=== PATIENT | male | born 1930 | race Caucasian/White ===

== ENCOUNTER → 2018-05-29 13:41 | Day surgery (SDC) | payer MEDICARE, OTHER ==
[~2018-05-29 13:41] MED LIST: Buffered Lidocaine 1% SYRIN* 1 ML/SYRINGE INTRADERM ONE; Bupivacaine 0.25% SDV PF* 10 ML VIAL INJ ONE; Dexamethasone IV* 4 MG/ML 1 ML (4 MG) IV SLOW PU ONE; Dexamethasone IV* 4 MG/ML 1 ML (4 MG) ONE; Famotidine IV* 10 MG/ML 2 ML (20 mg) IV ONE; Famotidine IV* 10 MG/ML 2 ML (20 mg) ONE; Lactated Ringers 1000 ML Bag* 1,000 ML IV SCH; Lidocain 1% EPI 1:100,000 * 30 ML MDV ONE; Midazolam* 1 MG/ML 2 ML VIAL (2 MG) ONE; Ondansetron INJ* 2 MG/ML VIAL ONE; Propofol* 10 MG/ML 20 ML BTL ONE; ceFAZolin 2 GM in NS PREMIX(*) 2 GM/100 ML BAG IVPB ONE; fentaNYL* 50 MCG/ML 2 ML VIAL (100 MCG VIAL) ONE
[2018-05-29 19:08] VITALS: BP 153/94
== END | disposition home or self-care (01) ==
LOC: OR 13:41
PROVIDERS: ATTEND Plastic Surgery
DX: C44.622 Squamous cell carcinoma of skin of right upper limb, including shoulder (principal); Z87.891 Personal history of nicotine dependence; I10 Essential (primary) hypertension; I69.819 Unspecified symptoms and signs involving cognitive functions following other cerebrovascular disease; M19.90 Unspecified osteoarthritis, unspecified site
CPT/HCPCS: 88305; 88331; 88332; J0690; J1100; J2250; J2405; J2704; J3010; J3490

== ENCOUNTER 2018-07-02 17:36 | Inpatient (IN) | payer MEDICARE ==
--- NOTE | 2018-07-02 17:49 | ED ---
Complex/Multi-Sys Presentation - HPI Summary HPI Summary: Pt is an 87 y/o male brought in by EMS who presents to the ED c/o generalized weakness. As per EMS, he had a fall 3-4 days ago. He was seen by his PCP Dr. Shepherd and all tests were normal. Pt has no memory of the fall and is unsure if he has a head injury. Since the fall his condition has been worsening and he is not able to ambulate. Pt is able to ambulate by himself normally. Pt now c/o generalized weakness, confusion, BLE edema, and back pain. He denies any CP, SOB , or dysuria. Pt takes daily ASA. - History Of Current Complaint Hx Obtained From: Patient, EMS Onset/Duration: Gradual Onset, Worse Since Timing: Constant Location: Pain At: - back Aggravating Factor(s): Fall Alleviating Factor(s): Nothing Associated Signs And Symptoms: Positive: Confusion, Weakness, Back Pain Related History: Other - recent fall - Allergies/Home Medications Allergies/Adverse Reactions: Allergies Allergy/AdvReac Type Severity Reaction Status Date / Time No Known Allergies Allergy Verified 05/29/18 14:45 PMH/Surg Hx/FS Hx/Imm Hx Cardiovascular History: Reports: Hx Hypertension - ON MEDICATION FOR Denies: Hx Congestive Heart Failure, Hx Pacemaker/ICD Respiratory History: Reports: Hx Sleep Apnea - BUT NOT DIAGNOSED BY A PHYSICIAN - PATIENT STATES HE OCCASIONALLY HAS Denies: Other Respiratory Problems/Disorders GI History: Reports: Hx Gastroesophageal Reflux Disease - OCCASIONALLY, Hx Jaundice - ONLY WHEN HAD THE HEPATITIS, Other GI Disorders - X 1 BOUT OF COLITIS WHILE IN HIGH SCHOOL Musculoskeletal History: Reports: Hx Arthritis - HANDS, FEET, Hx Gout Sensory History: Reports: Hx Contacts or Glasses - GLASSES Denies: Hx Hearing Aid Opthamlomology History: Reports: Hx Contacts or Glasses - GLASSES Neurological History: Denies: Other Neuro Impairments/Disorders Psychiatric History: Reports: Hx Anxiety - HX OF-REPORTS NO MEDICATION FOR AT THIS TIME, Hx Depression - HX OF-REPORTS NO MEDICATION FOR AT THIS TIME Denies: Hx Panic Disorder - Surgical History Surgery Procedure, Year, and Place: COLONOSCOPY WITH ANESTHESIA Hx Anesthesia Reactions: No Infectious Disease History: No Infectious Disease History: Reports: 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" Denies: History Other Infectious Disease, Traveled Outside the [place] in Last 30 Days - Family History Known Family History: Negative: Cardiac Disease - [place], Other - stroke - Social History Alcohol Use: Rare Hx Substance Use: No Substance Use Type: Reports: None Hx Tobacco Use: Yes Smoking Status (MU): Former Smoker Amount Used/How Often: 1 PPD X 45 YEARS Review of Systems Negative: Chest Pain Negative: Shortness Of Breath Negative: dysuria Positive: Myalgia - back, Edema - BLE Neurological: Other - confusion Positive: Weakness - generalized All Other Systems Reviewed And Are Negative: Yes Physical Exam - Summary Physical Exam Summary: GENERAL: Patient is a well-developed and nourished M who is lying comfortable in the stretcher. Patient is not in any acute respiratory distress. HEAD AND FACE: Normocephalic EYES: PERRLA, EOMI x 2. EARS: Hearing grossly intact. MOUTH: Oropharynx within normal limits. NECK: Supple, trachea is midline, no adenopathy, no JVD, no carotid bruit. CHEST: Symmetric, no tenderness at palpation LUNGS: Clear to auscultation bilaterally. No wheezing or crackles. CVS: Regular rate and rhythm, S1 and S2 present, no murmurs or gallops appreciated. ABDOMEN: Soft, non-tender. Bowel sounds are normal. No abnormal abdominal pulsations. EXTREMITIES: Full ROM in all major joints, no cyanosis or clubbing. 3+ pitting edema of BLE, left worse than right. NEURO: Alert and oriented x 3. No acute neurological deficits. Speech is normal and follows commands. SKIN: Dry and warm. Erythema and warmth to dorsal aspect of left foot. Puncture wound on left great toe. Triage Information Reviewed: Yes Vital Signs On Initial Exam: Initial Vitals Temp Pulse Resp BP Pulse Ox 100.8 F 90 16 127/88 95 07/02/18 17:44 07/02/18 17:44 07/02/18 17:44 07/02/18 17:44 07/02/18 17:44 Vital Signs Reviewed: Yes Diagnostics - Vital Signs Vital Signs Temp Pulse Resp BP Pulse Ox 07/02/18 17:44 100.8 F 90 16 127/88 95 - Laboratory Result Diagrams: 07/02/18 19:50 07/03/18 06:26 Lab Statement: Any lab studies that have been ordered have been reviewed, and results considered in the medical decision making process. Complex Multi-Symp Course/Dx Course Of Treatment: Pt is an 87 y/o male brought in by EMS who presents to the ED c/o generalized weakness, confusion, BLE edema, and back pain s/p fall. A physical exam revealed 3+ pitting edema of BLE, left worse than right, Erythema and warmth to dorsal aspect of left foot, Puncture wound on left great toe. In the course pt was given Tylenol, Vancomycin, Zosyn, and fluids. Final dx of sepsis. Pt will be signed out to Dr. Javier at shift change, pending EKG, CXR, US , bloodwork, and UA. He is agreeable with this plan. - Diagnoses Provider Diagnoses: Cellulitis of left foot - Critical Care Time Critical Care Time: 30-74 min Discharge - Sign-Out/Discharge Documenting (check all that apply): Sign-Out Patient Signing out patient TO: Wilfrid Javier Patient Received Moderate/Deep Sedation with Procedure: No - Discharge Plan Condition: Stable Disposition: ADMITTED TO [facility] - Billing Disposition and Condition Condition: STABLE Disposition: Admitted to [facility] - Attestation Statements Document Initiated by Scribe: Yes Documenting Scribe: Ping Bustamante Provider For Whom Scribe is Documenting (Include Credential): Michel Hurd MD Scribe Attestation: Ping Villanueva scribed for Michel Hurd MD on 07/03/18 at 0740. Scribe Documentation Reviewed: Yes Provider Attestation: The documentation as recorded by the scribePing accurately reflects the service I personally performed and the decisions made by me, Michel Hurd MD Status of Scribe Document: Viewed
[2018-07-02] MEDS ORDERED: NS 0.9% 1000 ML** 1,000 ML IV.FLUID IV ONE (17:57)
[2018-07-02] MEDS ORDERED: Acetaminophen TAB* 325 MG PO ONE (17:59)
[2018-07-02] MEDS ORDERED: Piperacillin/Tazobac ADVAN(*) 3.375 GM in NS 0.9% 100 ML* 100 ML IVPB ONE (18:00)
[2018-07-02] MEDS ORDERED: Vancomycin(*) 1,000 MG in NS 0.9% 250 ML* 250 ML IVPB ONE (18:00)
[2018-07-02] MEDS ORDERED: Vancomycin(*) 1,000 MG BAG/ADDV IVPB ONE (18:12)
--- NOTE | 2018-07-02 19:15 | ED ---
Progress - Progress Note Progress Note: The patient is a 87 year old male who is presenting to the [facility] via ambulance and signed out from Dr. Hurd. The patient is received by Dr. Javier. He is pending EKG, CXR, US, bloodwork, and UA. - Results/Orders Results/Orders: US reveals, as per radiologist, no acute findings. No evidence of deep vein thrombosis. The ED Physician has reviewed this radiology report. - EKG/XRAY/CT EKG: NSR - 73 bpm Sinus rhythm. Comments: EKG at 195 reveals Non-specific ST-wave changes. Xray Comments: Chest X-ray as per ED Physician report reveals no acute processes. Course/Dx - Course Course Of Treatment: Pt is an 87 y/o male brought in by EMS. Pt was signed out to Dr. Javier at shift change, pending EKG, CXR, US, bloodwork, and UA. Upon evaluating EKG, CXR, US, bloodwork and UA revealing a high WBC. The patient will be admitted to Dr. Valadez and the dx will be Left foot cellulits. - Diagnoses Provider Diagnoses: Cellulitis of left foot - Provider Notifications Discussed Care Of Patient With: Charis Valadez Time Discussed With Above Provider: 21:15 Instructed by Provider To: Admit As Observation Discharge - Sign-Out/Discharge Documenting (check all that apply): Patient Departure - ADMITTED, Receiving Sign -Out Receiving patient FROM: Michel Hurd - Discharge Plan Condition: Stable Disposition: ADMITTED TO [facility] Referrals: Ángel Almazan MD [Primary Care Provider] - - Attestation Statements Document Initiated by Scribe: Yes Documenting Scribe: Helio Thapa Provider For Whom Scribe is Documenting (Include Credential): Dr. Wilfrid Javier Scribe Attestation: Helio Villanueva, scribed for Dr. Wilfrid Javier on 07/02/18 at 2203. Status of Scribe Document: Ready
[2018-07-02 19:58] LABS: ABS Lymphocytes 0.6 10^3/ul (1.0-4.8); ABS Monocytes 1.5 10^3/ul (0-0.8); ABS Neutrophils 9.1 10^3/ul (1.5-7.7); Eosinophil % 0.1 %; Hematocrit 35 % (42-52); Hemoglobin 11.5 g/dL (14.0-18.0); Lymphocyte % 5.7 %; Mean Corpuscular HGB Conc 33 g/dL (31-36); Mean Corpuscular Hemoglobin 32 pg (27-31); Mean Corpuscular Volume 95 fL (80-94); Mean Platelet Volume 8.4 fL (7.4-10.4); Platelet Count 209 10^3/uL (150-450); Red Blood Count 3.65 10^6 /uL (4.18-5.48); Red Cell Distribution Width 13 % (10.5-15); White Blood Count 11.2 10^3/uL (3.5-10.8)
[2018-07-02 20:08] LABS: Activated Partial Thrombo Time 30.1 seconds (26.0-36.3); INR 1.41 (0.82-1.09)
[2018-07-02 20:15] LABS: ALT 29 U/L (7-52); AST 27 U/L (13-39); Albumin 3.2 g/dL (3.2-5.2); Alkaline Phosphatase 57 U/L (34-104); Anion Gap 7 mmol/L (2-11); BUN/Creatinine Ratio 25.6 (8-20); Blood Urea Nitrogen 31 mg/dL (6-24); C Reactive Protein 223.49 mg/L (<8.01); CO2 Carbon Dioxide 25 mmol/L (22-32); Calcium 8.2 mg/dL (8.6-10.3); Chloride 105 mmol/L (101-111); Globulin 3.2 g/dL (2-4); Glucose 116 mg/dL (70-100); Potassium 3.6 mmol/L (3.5-5.0); Sodium 137 mmol/L (135-145); Total Protein 6.4 g/dL (6.4-8.9)
[2018-07-02 20:21] LABS: Troponin I 0.11 ng/mL (<0.04)
[2018-07-02 21:06] LABS: Urine Appearance Cloudy; Urine Bacteria Absent (Absent); Urine Bilirubin Negative (Negative); Urine Blood 1+ (Negative); Urine Color Yellow; Urine Glucose Negative (Negative); Urine Ketones Negative (Negative); Urine Nitrite Negative (Negative); Urine Protein 1+(30 mg/dL) (Negative); Urine Red Blood Cell Trace(0-2/hpf) (Absent); Urine Specific Gravity 1.021 (1.010-1.030); Urine Squamous Epithelial Cell Present (Absent); Urine Urobilinogen Negative (Negative); Urine White Blood Cell Trace(0-5/hpf) (Absent)
[2018-07-02] MEDS ORDERED: Ondansetron INJ* 2 MG/ML VIAL IV PRN (21:44)
[2018-07-02] MEDS ORDERED: Lactated Ringers 1000 ML Bag* 1,000 ML IV SCH (22:00)
[2018-07-02] MEDS ORDERED: Vancomycin(*) 0 MG in NS 0.9% 250 ML* 250 ML IVPB SCH (22:00)
[2018-07-02 22:21] LABS: Creatine Kinase 101 U/L (10-223)
[2018-07-02] MEDS ORDERED: Cefepime 1 GM in Dextrose(*) 1 GM/50 ML BAG IV SCH (22:30)
[2018-07-02 22:31] LABS: Cholesterol 116 mg/dL; HDL Cholesterol 23.9 mg/dL; LDL Cholesterol 75 mg/dL; Triglycerides 88 mg/dL
[2018-07-02 22:52] LABS: Troponin I 0.11 ng/mL (<0.04)
[2018-07-02] MEDS ORDERED: Vancomycin per Pharmacy* NOTE FOLLOW UP PRN (22:59)
[2018-07-02] MEDS: Heparin VIAL(*) 5000 UNITS/ML VIAL (FIVE THOUSAND) SUBCUT SCH (23:19)
[2018-07-02] MEDS ORDERED: metroNIDAZOLE IV 500 MG/100ML* 500 MG/100 ML BAG IVPB SCH (23:30)
[2018-07-03 01:16] LABS: Troponin I 0.09 ng/mL (<0.04)
--- NOTE | 2018-07-03 04:53 | HP ---
CC: Dr. Ángel Almazan * DATE OF ADMISSION: 07/02/18 PRIMARY CARE PROVIDER: Dr. Ángel Almazan. MY ATTENDING WHILE IN THE HOSPITAL: Charis Valadez MD * (DICTATED BY JUAN GALICIA) CHIEF COMPLAINT: Weakness x2 days. HISTORY OF PRESENT ILLNESS: Mr. Abdalla is an 87-year-old male with past medical significant for hypertension, hyperlipidemia, TIA in 2015 with no residual deficits, mild cognitive impairment, who presents to the emergency department after, 2 days before he began to feel like he lacked strength symmetrically in his upper and lower extremities and just felt generally off, no appetite. The patient had some subjective fevers. No chills. The patient had some nausea without vomiting. The patient did not pass out. The patient denied chest pain. The patient denied palpitations. The patient states that he fell several days ago, mechanical fall and hit his bilateral toes and they now hurt. The patient denies any other pain. The patient states the pain in his feet is about 4/5 and symmetrical. The patient did not notice that his feet were swollen before today. The patient denies chronic lower extremity swelling. The patient denies recent immobilization except for last 2 days when he was not able to get around very much. The patient lives by himself and is surprised himself on being very strong. The patient does not have history of diabetes. The patient has no history of severe infection requiring hospitalization. The patient had surgery to remove a skin cancer from the dorsum of his right hand approximately 1 month ago. The patient has not taken antibiotics or taken any analgesics or applied any home treatments to his lower extremities. The patient states that he has been able to keep his lower extremities up pretty well to decrease the swelling. The patient has had no recent hospitalizations. In the emergency department, the patient was found to be borderline tachycardic, has an elevated temperature, elevated white blood cell count, severely elevated CRP and elevated troponin at 0.11. Consistent with sepsis, the patient had a negative urinalysis, negative chest x-ray. The patient's EKG showed no ischemia. The patient has negative lower extremity Doppler for DVT due to concern for left lower extremity cellulitis. We are asked to evaluate the patient for admission to the hospital. PAST MEDICAL HISTORY: 1. Hypertension. 2. Hyperlipidemia. 3. TIA, no residual deficits. 4. Mild cognitive impairment. 5. Recent skin cancer, status post removal. 6. History of hepatitis in 1956, requiring 1 month of hospitalization while patient was in the service. 7. Chronic kidney disease stage 3. PAST SURGICAL HISTORY: Skin cancer removed from dorsum of right hand. MEDICATIONS: 1. Losartan/hydrochlorothiazide 50/12.5 one tab p.o. daily. 2. Aspirin 81 mg p.o. daily. 3. The patient takes 8 supplements, which he does not know the names of. ALLERGIES: No known drug allergies. FAMILY HISTORY: The patient's parents both of old age. The patient has a sister who has dementia whom he does not talk to frequently. SOCIAL HISTORY: The patient smoked from when he was 19 to when he was about 57 approximately 1 pack a day. The patient drinks occasional alcohol. Does not use illicit drugs. The patient is retired from a [employer] company. He was in the service. The patient has never . Never had any kids. The patient's surrogate decision maker will be his friend from [facility], Dillon Ferguson. REVIEW OF SYSTEMS: A 14-point review of systems was reviewed and is negative except as stated above in the HPI. PHYSICAL EXAMINATION GENERAL: The patient is an 87-year-old male, who appears stated age, sitting comfortably in bed, in no acute distress. VITAL SIGNS: At the time of evaluation, temperature 100.8, pulse rate 73, respiratory rate 22, oxygen saturation 92% on room air, blood pressure 125/52. HEENT: Head: Normocephalic, atraumatic. Sclerae anicteric. No conjunctival injection. Nasal mucosa moist. Oral mucosa moist. No pharyngeal erythema, discharge, or exudate. NECK: Supple, nontender. No lymphadenopathy. No carotid bruits auscultated. No JVD. RESPIRATORY: Clear to auscultation bilaterally. No wheezes, rales, or rhonchi. CARDIAC: Regular rate and rhythm. No clicks, murmurs, gallops, or rubs. Pulses are 2+ in the bilateral dorsalis pedis, posterior tibialis and radial areas. ABDOMEN: Soft, nontender, nondistended. Bowel sounds present. Normoactive in all 4 quadrants. No hepatosplenomegaly. No abdominal bruits auscultated. No hepatojugular reflux. GENITOURINARY: No suprapubic or CVA tenderness. SKIN: Clear, dry, intact. EXTREMITIES: Swelling of bilateral lower extremities. Circumferential thickening. The second toe on the left foot open area with a fist amount of moisture between the second and third toes on the left lower extremity. Tenderness to palpation over the entirety of the left foot, slight erythema and swelling in the right lower extremity. No tenderness to palpation. Erythema over the left foot, slight open area with surrounding erythema on the dorsum of the right hand. No other rash or ulcers. NEUROLOGIC: Cranial nerves II through XII are intact. No focal deficits. Alert and oriented x3. PSYCHIATRIC: Pleasant and cooperative. DIAGNOSTIC STUDIES/LAB DATA: White blood cell count 11.2, hemoglobin 11.5, platelet count 209. INR 1.41, aPTT 30.1. Sodium was 137, potassium 3.6, chloride 105, carbon dioxide 25, anion gap 7, BUN 31, creatinine 1.21, glucose 116, lactic acid 1.5, calcium 8.2. Bilirubin 1.1, AST 27, ALT 29, alkaline phosphatase 57. Troponin I 0.11, CRP 220. BNP 76, protein 6.4, albumin 2.2, globulin 3.2. Urinalysis has 1+ protein, 1+ blood, otherwise unremarkable. Studies: Chest x-ray shows no active cardiopulmonary disease. Electrocardiogram shows normal sinus rhythm, rate 73, QTc of 439, normal axis. No hypertrophy or enlargement. No blocks. T-wave inversion in II and aVF. Venous Doppler study read as no evidence of acute deep vein thrombosis, no acute findings. Subcutaneous edema in the patient's lower leg. ASSESSMENT AND PLAN: Impression: Mr. Abdalla is an 87-year-old male with past medical history significant for hypertension, hyperlipidemia, transient ischemic attack, who presents to the emergency department with 2 days of weakness and was found to have a likely cellulitis of the left lower extremity. The patient was admitted to the hospital for IV antibiotics and close monitoring. 1. Left lower extremity cellulitis, sepsis, concern for deep tissue infection. The patient has significant swelling of the left lower extremity with tenderness to palpation particularly with circumferential swelling and erythema in the second toe on the left foot with an ulcer at the base of his toe. The patient has no history of diabetes, but will have a hemoglobin A1c checked given the location of his ulcer. We can start patient on vancomycin, cefepime, and Flagyl at this time. Wound culture attempted to be obtained. Her antibiotic coverage will be narrowed based on these blood culture findings and findings of MRI which has been ordered to assess for deep tissue infection. The patient would likely be able to be narrowed to coverage for cellulitis if no deep tissue infection is found. The patient had a wound to this foot. This does not appear to be the source of this infection at this time. The patient received 30 30 mL/kg bolus while in the emergency department. Continue on fluids at 100 mL/hour for blood pressure support at this time. The patient does not meet criteria for severe sepsis. 2. Hypertension. We will hold antihypertensive medications as the patient is normotensive setting of sepsis. 3. Hyperlipidemia. The patient is on no medications for this. We will recheck lipid profile. The patient had slightly elevated LDL in 2014. 4. History of transient ischemic attack. Given patient's history of transient ischemic attack, it is very likely he has other vascular disease including peripheral vascular disease. The patient has good pulses in his lower extremities. Lower extremity edema might be inhibiting wound healing. The patient likely also has coronary artery disease. Continue the patient's aspirin at this time. Consider stop therapy for secondary prevention. 5. Elevated troponin. The patient has an elevated troponin, this will be trended. The patient has no ischemic changes on his EKG. This is likely representing demand ischemia in the setting of sepsis. 6. Mild cognitive impairment. Implement supportive care, avoid medications noted to cause delirium. 7. DVT prophylaxis: The patient will have heparin subcu. 8. FEN: The patient will have a heart-healthy diet, caffeine okay. 9. Code status: The patient would like to be a full code. 10. Disposition: The patient is admitted inpatient to the hospital, estimated length of stay greater than 2 days. TIME SPENT: Approximately 60 minutes was spent on this admission of the patient , 30 of which was spent [id number] with the patient obtaining history and physical and discussing treatment plan. This plan was discussed with my attending, Dr. Charis Valadez, and she is in agreement. JUAN GALICIA [id number]/[facility] #: [id number] [place]
[2018-07-03] MEDS: Heparin VIAL(*) 5000 UNITS/ML VIAL (FIVE THOUSAND) SUBCUT SCH ×3 (05:35→21:21)
[2018-07-03 07:12] LABS: C Reactive Protein 240.71 mg/L (<8.01); Calcium 8.4 mg/dL (8.6-10.3); EGFR African American 78.6 (>60); Magnesium 2.2 mg/dL (1.9-2.7); Potassium 3.5 mmol/L (3.5-5.0)
[2018-07-03] MEDS ORDERED: Diazepam TAB(*) 5 MG PO ONE (08:38)
--- NOTE | 2018-07-03 08:59 | PN ---
Subjective Date of Service: 07/03/18 Interval History: Pt is feeling ok today. He states there is no pain in his foot at rest. When I touch his L first toe he winces in pain. He denies any SOB, CP or abdominal issues. He does c/o mild back pain which he thinks is related to his positioning. He still feels quite weak. Objective Active Medications: Acetaminophen (Tylenol Tab*) 650 mg PO Q6H PRN PRN Reason: FEVER/PAIN Aspirin (Aspirin Ec Tab*) 81 mg PO QAM [facility] Heparin Sodium (Porcine) (Heparin Vial(*)) 5,000 units SUBCUT Q8HR [facility] Last Admin: 07/03/18 05:35 Dose: 5,000 units Lactated Ringer's (Lactated Ringers 1000 Ml Bag*) 1,000 mls @ 100 mls/hr IV PER RATE [facility] Last Admin: 07/02/18 23:40 Dose: 100 mls/hr Cefepime HCl (Maxipime 1 Gm In Dextrose Duplex (*)) 1 gm in 50 mls @ 100 mls/ hr IV Q12H [facility] Last Admin: 07/02/18 23:40 Dose: 100 mls/hr Metronidazole/Sodium Chloride (Flagyl 500 Mg Ivpb*) 500 mg in 100 mls @ 100 mls /hr IVPB Q12H [facility] Last Admin: 07/03/18 00:46 Dose: 100 mls/hr Vancomycin HCl 1,250 mg/ (Sodium Chloride) 250 mls @ 166.667 mls/hr IVPB Q24H [facility] Multivitamins/Minerals (Preservision Areds(Multivitamins/Mineral)(Nf)) 1 cap PO QAM [facility] Ondansetron HCl (Zofran Inj*) 4 mg IV Q6H PRN PRN Reason: NAUSEA Pharmacy Consult (Vancomycin Per Pharmacy*) 1 note FOLLOW UP . PRN PRN Reason: PER PROTOCOL Pharmacy Profile Note (Vancomycin Trough Check) 1 note FOLLOW UP 1130 ONE Stop: 07/05/18 11:31 Pneumococcal Polyvalent Vaccine (Pneumococcal Vac 23-Polyvalent*) 0.5 ml IM .ONCE ONE Stop: 07/03/18 09:01 Vital Signs - 8 hr 07/03/18 02:28 Temperature 98.9 F Pulse Rate 85 Respiratory 18 Rate Blood Pressure 97/72 (mmHg) O2 Sat by Pulse 93 Oximetry Oxygen Devices in Use Now: None Appearance: Elderly male lying in bed, NAD Eyes: No Scleral Icterus Ears/Nose/Mouth/Throat: Mucous Membranes Moist Respiratory: Symmetrical Chest Expansion and Respiratory Effort, Clear to Auscultation - anteriorly Cardiovascular: NL Sounds; No Murmurs; No JVD, RRR, - - 1+ LE edema Abdominal: NL Sounds; No Tenderness; No Distention Extremities: No Clubbing, Cyanosis Skin: - - minimal erythema to L dorsum of the foot, L 1st and 2nd toes, very small scabbed lesion to the medial aspect of the L 1st toe Neurological: - - alert, poor historian Result Diagrams: 07/02/18 19:50 07/03/18 06:26 Assess/Plan/Problems-Billing Mr Abdalla is an 87 yo M who has a h/o HTN, HLD, CKD stage III and mild cognitive impairment who presented to the ER with c/o weakness and was admitted for L foot/1st and 2nd toe cellulitis. - Patient Problems (1) Sepsis Current Visit: Yes Status: Acute Comment: Pt by definition was septic on admission with mild tachycardia and tachypnea. Clinically however the patient did not appear to be acutely ill. He has been treated for sepsis with fluid bolus and broad spectrum Abx. (2) Cellulitis Current Visit: Yes Status: Acute Code(s): L03.90 - CELLULITIS, UNSPECIFIED SNOMED Code(s): 859468185 Comment: Pt with mild cellulitis to L dorsum of the foot and 1st/2nd toes. There is pain with movement of the 1st toe which makes me concerned for possible gout as the cause of the mild leukocytosis and minimal erythema (I did not see his foot yesterday to see if there has been improvement in the erythema) . Will narrow coverage to cefazolin, I do not see a significant ulceration and he his not diabetic. Monitor for continued improvement. Check uric acid level. Consider starting colchicine. (3) Weakness Current Visit: Yes Status: Acute Code(s): R53.1 - WEAKNESS SNOMED Code(s) : 84875298 Comment: On admission thought to be secondary to infection. He also has LE edema and mildly positive troponin. I am concerned about these. Will obtain transthoracic echo to eval LVEF, valve function. PT eval pending. (4) Elevated troponin Current Visit: Yes Status: Acute Code(s): R74.8 - ABNORMAL LEVELS OF OTHER SERUM ENZYMES SNOMED Code(s): 784134682 Comment: Possibly secondary to demand ischemia. EKG unchanged for prior in 2014. Will get echo to eval for systolic dysfunction-possibly CHF leading to elevated troponin. (5) HTN (hypertension) Current Visit: Yes Status: Acute Code(s): I10 - ESSENTIAL (PRIMARY) HYPERTENSION SNOMED Code(s): 35783402 Comment: BP generally under ok control. Losartan/HCTZ on hold currently. (6) HLD (hyperlipidemia) Current Visit: Yes Status: Acute Code(s): E78.5 - HYPERLIPIDEMIA, UNSPECIFIED SNOMED Code(s): 93137052 Comment: Not on treatment. (7) DVT prophylaxis Current Visit: Yes Status: Acute Code(s): Z29.9 - ENCOUNTER FOR PROPHYLACTIC MEASURES, UNSPECIFIED SNOMED Code(s): 696773218 Comment: SQ heparin (8) Full code status Current Visit: Yes Status: Acute Code(s): Z78.9 - OTHER SPECIFIED HEALTH STATUS SNOMED Code(s): 682061121 Comment: Full code
[2018-07-03] MEDS ORDERED: MINERA AREDS PO SCH (09:00)
[2018-07-03] MEDS ORDERED: Pneumococcal *Vac Polyvalent 0.5 ML VIAL IM ONE (09:00)
[2018-07-03] MEDS ORDERED: MULTIVITAMINS PO SCH (09:00)
[2018-07-03] MEDS ORDERED: Colchicine* 0.6 MG TAB PO ONE (09:02)
[2018-07-03] MEDS: Aspirin EC TAB* 81 MG TAB.EC PO SCH (10:03)
[2018-07-03] MEDS: ceFAZolin 1 GM ADVAN(*) 1 GM in NS 0.9% 50 ML* 50 ML IVPB SCH ×3 (11:31→21:16)
[2018-07-03] MEDS ORDERED: Vancomycin(*) 1,250 MG in NS 0.9% 250 ML* 250 ML IVPB SCH (12:00)
--- NOTE | 2018-07-03 16:41 | ECHO ---
*[facility]* [place] [address] Fax #: [phone] Transthoracic Echocardiogram Patient: Anselmo Mittal Height: 64 in / L 162.6 cm : 1930 Weight: 170.6 lb / Study Date: 07/03/2018 77.6 kg Age: 87 BP: 97 / 72 Gender: M BMI/BSA: 29.4 kg/m^2 HR: 81 bpm / 1.83 m^2 *Truck Striker: * Marita Gutierres [facility] *Referring Physician: * Danay AntoineReading Physician: * Charly Gill MD Indications: Edema. History: PMH: Transient ischemic attack. Functional status: Renal failure. Patent foramen ovale. Risk factors: Current tobacco use. Hypertension. Dyslipidemia. Conclusions Summary: 1. Left ventricle: There is focal basal hypertrophy. Systolic function is normal. The estimated ejection fraction is 55-65%, by visual assessment. Wall motion is normal; there are no regional wall motion abnormalities. 2. Right ventricle: Systolic function is low normal. 3. Mitral valve: There is no evidence of stenosis. There is mild regurgitation. 4. Aortic valve: There is no evidence of stenosis. There is mild regurgitation. 5. Tricuspid valve: There is mild regurgitation. 6. Pericardium, extracardiac: There is no significant pericardial effusion. 7. Impressions: Unchanged from the study of 07/13/2014. Study data: Transthoracic echocardiogram. Procedure: Transthoracic echocardiography was performed. Image quality was fair. Complete 2D, spectral Doppler, and color flow Doppler. Location: Bedside. Patient status: Inpatient. Patient room number: 416-2. Rhythm: Normal sinus rhythm. Findings Left ventricle: The cavity size is at the lower limits of normal. There is focal basal hypertrophy. Systolic function is normal. The estimated ejection fraction is 55-65%, by visual assessment. Wall motion is normal; there are no regional wall motion abnormalities. Features are consistent with a pseudonormal left ventricular filling pattern, with concomitant abnormal relaxation and increased filling pressure (grade 2 diastolic dysfunction). Right ventricle: The cavity size is mildly dilated. The moderator band is in a normal position. Systolic function is low normal. Left atrium: The atrium is mildly to moderately dilated. Right atrium: The atrium is normal in size. Mitral valve: The annulus is calcified. The leaflets are mildly thickened. There is no evidence of stenosis. There is mild regurgitation. The peak diastolic gradient is 3.4 mm Hg. Aortic valve: The valve is trileaflet. The leaflets are mildly thickened. There is no evidence of stenosis. There is mild regurgitation. The mean systolic gradient is 2.0 mm Hg. The peak systolic gradient is 4.0 mm Hg. Tricuspid valve: The leaflets are normal thickness. There is no evidence of stenosis. There is mild regurgitation. Pulmonic valve: Not well visualized. The leaflets are normal thickness. There is no evidence of stenosis. There is trivial regurgitation. The peak systolic gradient is 2.0 mm Hg. Aorta: Ascending aorta: The ascending aorta is appears normal. Aortic arch: The aortic arch is appears normal. The aortic root is not dilated. Pericardium: A prominent pericardial fat pad is present. There is no significant pericardial effusion. Pulmonary arteries: The main pulmonary artery is normal-sized. Systemic veins: Inferior vena cava: The vessel is normal in size. The respirophasic diameter changes are in the normal range (>= 50%). Measurements Left ventricle Value Ref Right atrium continued Value Ref JOHN, LAX (L) 3.7 cm 4.2 - 5.8 ML dim, ES, A4C 3.8 cm 2.6 - 4.4 ESD, LAX 2.6 cm 2.5 - 4.0 Estimated RAP 3 mm Hg --------- FS, LAX 29 % 25 - 43 PW, ED, LAX 1.0 cm 0.6 - 1.0 Aortic valve Value Ref JOHN (L) 3.7 cm 4.2 - 5.8 Alessandra diam, ED 1.9 cm --------- ESD 2.6 cm 2.5 - 4.0 Peak v, S 1.05 m/sec --------- FS 29 % 25 - 43 Mean v, S 0.68 m/sec --------- PW, ED 1.0 cm 0.6 - 1.0 VTI, S 18.5 cm --------- EF 57 % 52 - 72 Mean grad, S 2.0 mm Hg --------- Mass 110 g 96 - 200 Peak grad, S 4.0 mm Hg --------- Mass/bsa 60 g/m^2 50 - 102 AR peak v 3.71 m/sec --------- Mass/ht 67.84 g/m --------- AR PHT 486 ms --------- Mass/ht^2.7 29.70 g/m^2.7 --------- AR peak grad 55 mm Hg --------- E', lat alessandra, TDI (L) 5.7 cm/sec >=10.0 E/e', lat alessandra, 16 --------- Mitral valve Value Ref TDI Peak E 0.92 m/sec --------- E', med alessandra, TDI (L) 5.9 cm/sec >=7.0 Peak A 0.69 m/sec --- ------ E/e', med alessandra, 16 --------- Decel time 201 ms ------ --- TDI Peak grad, D 3.4 mm Hg --------- E', avg, TDI 5.8 cm/sec --------- Peak E/A ratio 1.3 ------ --- E/e', avg, TDI (H) 16 <=14 Tricuspid valve Value Ref LVOT Value Ref TR peak v 2.5 m/sec <=2.8 Peak stefany, S 0.85 m/sec --------- Peak RV-RA grad, S 25 mm Hg --------- Mean stefany, S 0.57 m/sec --------- Mean grad, S 2 mm Hg --------- Aortic root Value Ref Root diam 3.3 cm <4.0 Ventricular septum Value Ref IVS, ED, LAX 1.0 cm 0.6 - 1.0 Ascending aorta Value Ref IVS, ED 1.0 cm 0.6 - 1.0 AAo AP diam, S 3.3 cm --------- Right ventricle Value Ref Aortic arch Value Ref JOHN, LAX 3.5 cm --------- Arch diam 2.4 cm --------- JOHN minor ax, A4C (H) 4.4 cm 1.9 - 3.5 mid Decending aorta Value Ref Pressure, S 25 mm Hg --------- Too peak stefany 0.73 m/sec --------- Left atrium Value Ref Pulmonary artery Value Ref AP dim, ES 3.30 cm 3.00 - Pressure, S 23.0 mm Hg --------- 4.00 ML dim, A4C 4.5 cm --------- Inferior vena cava Value Ref Vol/bsa, ES, 1-p 32 ml/m^2 12 - 37 Diam 1.8 cm --------- A4C Vol/bsa, ES, A/L (H) 41 ml/m^2 16 - 34 Right atrium Value Ref SI dim, ES 4.5 cm 3.4 - 5.3 Legend: (L) and (H) adri values outside specified reference range. Prepared and electronically signed by Charly Gill MD 07/03/2018 16:40
--- NOTE | 2018-07-03 17:32 | CONSULT ---
Subjective Date of Service: 07/03/18 Interval History: Mr. Mittal is an 87 yo male with PMH significant for HTN, HLD, TIA, CKD3, and mild cognitive impairment, who presented to the emergency room for weakness. He was admitted for left LE cellulitis and concern for deep tissue infection. Upon admission he was noted to have an wound at the base of his toe. He denies any history of diabetes. Patient seen and examined at bedside. Family History: Unchanged from Admission Social History: Unchanged from Admission Past Medical History: Unchanged from Admission Review of Systems - Measurements Intake and Output: Intake and Output Last 24 Hours 07/01/18 07/02/18 07/03/18 07/04/18 06:59 06:59 06:59 06:59 Intake Total 0 563 Balance 0 563 Weight 171 lb 3.2 oz 171 lb 3.2 oz Intake: IV Fluids 25 NS 25 IVPB 58 cefazolin 58 Oral 0 480 Other: Estimated Void Medium Medium Date of Last Bowel Unknown Movement # Bowel Movements 0 0 # Voids 1 1 - Review of Systems Constitutional Symptoms: Positive: Fever Negative: Other - Chills Dermatology: Positive: Other - Redness to left foot Endocrinology: Negative: Diabetes Mellitus Objective Active Medications: Acetaminophen (Tylenol Tab*) 650 mg PO Q6H PRN Reason: FEVER/PAIN Aspirin (Aspirin Ec Tab*) 81 mg PO QAM [facility] Heparin Sodium (Porcine) (Heparin Vial(*)) 5,000 units SUBCUT Q8HR [facility] Cefazolin Sodium 1 gm/ Sodium (Chloride) 50 mls @ 200 mls/hr IVPB Q6H [facility] Multivitamins/Minerals (Preservision Areds(Multivitamins/Mineral)(Nf)) 1 cap PO QAM [facility] Ondansetron HCl (Zofran Inj*) 4 mg IV Q6H PRN Reason: NAUSEA Vital Signs - 8 hr 07/03/18 07/03/18 07/03/18 10:00 10:02 11:46 Temperature 98.4 F Pulse Rate 74 Respiratory 18 18 16 Rate Blood Pressure 125/54 (mmHg) O2 Sat by Pulse 98 98 Oximetry 07/03/18 12:08 Temperature Pulse Rate Respiratory 16 Rate Blood Pressure (mmHg) O2 Sat by Pulse Oximetry Oxygen Devices in Use Now: None Appearance: NAD, sitting up in bed Ears/Nose/Mouth/Throat: Mucous Membranes Moist Respiratory: Symmetrical Chest Expansion and Respiratory Effort Cardiovascular: - - 1+ bilateral LE edema Extremities: - - LE edema Skin: - - See skin note below Neurological: Alert and Oriented x 3 Nutrition: Taking PO's Result Diagrams: 07/04/18 15:03 07/04/18 15:03 Microbiology and Other Data: Microbiology 07/02/18 17:58 Urine Culture - Final Urine Skin Deviation Note - Skin Deviation Findings Left foot - There is a small scabbed area to the medal aspect of the base of the 1st toe, measuring 0.6 cm x 0.4 cm and a small amount of yellow crusting between the 1st and second toes. No other wounds or open areas noted on the left foot. There is erythema to the 1st toe and there is some pain with movement. The toe nails on bilateral feet are long. Assessment/Plan: 1. Left 1st toe erythema and small wound that appears to have been a blister. Recommend applying ABX ointment and a bandaid to the wound. He is noted to have bilateral LE edema and is encouraged to keep legs elevated. Consider workup/ treatment for possible gout. Encouraged the son to make an appointment with a slice plug cutter operator for care of the toe nails. 2. Diet. Regular diet 3. Code Status. Full Code 4. Disposition. Inpatient, disposition per orthopedics TIME SPENT: Time for this wound consultation was 20 minutes and 10 minutes was spent with the patient and son discussing medial history; assessing, measuring and photographing the wound. Wound Problem/Plan Is Patient a Wound Clinic Patient: No Attending: Lidia Lu
[2018-07-03] MEDS: Acetaminophen TAB* 325 MG PO PRN (21:19)
[2018-07-04] MEDS: ceFAZolin 1 GM ADVAN(*) 1 GM in NS 0.9% 50 ML* 50 ML IVPB SCH ×4 (04:01→21:03)
[2018-07-04] MEDS: Heparin VIAL(*) 5000 UNITS/ML VIAL (FIVE THOUSAND) SUBCUT SCH ×3 (06:02→21:03)
[2018-07-04] MEDS: Neomycin/Polym/Bacit TOP OINT* 15 GM TOPICAL SCH (09:53)
[2018-07-04] MEDS: Multivitamins/Minerals TAB PO SCH (09:53)
[2018-07-04] MEDS: Acetaminophen TAB* 325 MG PO PRN ×2 (09:53→15:59)
[2018-07-04] MEDS: Aspirin EC TAB* 81 MG TAB.EC PO SCH (09:53)
[2018-07-04] MEDS ORDERED: Furosemide IV* 10 MG/ML 2 ML VIAL (20 MG) IV ONE (14:49)
--- NOTE | 2018-07-04 14:55 | PN ---
Subjective Date of Service: 07/04/18 Interval History: Pt is feeling ok. Nursing notes Anselmo is difficult to move-he is taking a 2 assist. He c/o discomfort in all of his joints but does not specifically state his L foot is worse. He denies any SOB. Family History: Unchanged from Admission Social History: Unchanged from Admission Past Medical History: Unchanged from Admission Objective Active Medications: Acetaminophen (Tylenol Tab*) 650 mg PO Q6H PRN PRN Reason: FEVER/PAIN Last Admin: 07/04/18 09:53 Dose: 650 mg Aspirin (Aspirin Ec Tab*) 81 mg PO QAM [facility] Last Admin: 07/04/18 09:53 Dose: 81 mg Colchicine (Colcrys*) 0.6 mg PO DAILY [facility] Furosemide (Lasix Iv*) 20 mg IV ONCE ONE Stop: 07/04/18 14:50 Heparin Sodium (Porcine) (Heparin Vial(*)) 5,000 units SUBCUT Q8HR [facility] Last Admin: 07/04/18 06:02 Dose: 5,000 units Cefazolin Sodium 1 gm/ Sodium (Chloride) 50 mls @ 200 mls/hr IVPB Q6H [facility] Last Admin: 07/04/18 09:53 Dose: 200 mls/hr Multivitamins/Minerals (Theragran/Minerals Tab*) 1 tab PO QAM [facility] Last Admin: 07/04/18 09:53 Dose: 1 tab Neomycin/Polymyxin/Bacitracin (Neosporin Top Oint Tube*) 1 applic TOPICAL DAILY [facility] Last Admin: 07/04/18 09:53 Dose: 1 applic Ondansetron HCl (Zofran Inj*) 4 mg IV Q6H PRN PRN Reason: NAUSEA Vital Signs - 8 hr 07/04/18 07/04/18 10:00 11:17 Temperature 97.8 F Pulse Rate 70 Respiratory 20 26 Rate Blood Pressure 148/59 (mmHg) O2 Sat by Pulse 97 97 Oximetry Oxygen Devices in Use Now: None Appearance: Elderly male sitting up in a chair, NAD Eyes: No Scleral Icterus Ears/Nose/Mouth/Throat: Mucous Membranes Moist Respiratory: Symmetrical Chest Expansion and Respiratory Effort, Clear to Auscultation - few RLL crackles Cardiovascular: NL Sounds; No Murmurs; No JVD, RRR, - - 2+ LE edema bilaterally Abdominal: NL Sounds; No Tenderness; No Distention Extremities: No Clubbing, Cyanosis Skin: No Nodules or Sclerosis, - - minimal erythematous 1st/2nd toes on the left , mild erythema with petechial change on the outer aspect of the L foot Neurological: - - alert and oriented to situation, poor historian Result Diagrams: 07/02/18 19:50 07/03/18 06:26 Microbiology and Other Data: Microbiology 07/02/18 17:58 Urine Culture - Final Urine Assess/Plan/Problems-Billing Mr Abdalla is an 87 yo M who has a h/o HTN, HLD, CKD stage III and mild cognitive impairment who presented to the ER with c/o weakness and was admitted for L foot/1st and 2nd toe cellulitis. - Patient Problems (1) Sepsis Current Visit: Yes Status: Acute Comment: Pt by definition was septic on admission with mild tachycardia and tachypnea. Clinically however the patient did not appear to be acutely ill. He has been treated for sepsis with fluid bolus and broad spectrum Abx. (2) Cellulitis Current Visit: Yes Status: Acute Code(s): L03.90 - CELLULITIS, UNSPECIFIED SNOMED Code(s): 382172956 Comment: Pt with ? mild cellulitis to L dorsum of the foot and 1st/2nd toes. There is no longer any pain with movement of the 1st toe, perhaps he responded to colchicine yesterday. Will follow up CRP today. MRI was ordered wrong and done of the left knee. Continue cefazolin for now. Will xray L foot to eval for fracture. (3) Weakness Current Visit: Yes Status: Acute Code(s): R53.1 - WEAKNESS SNOMED Code(s) : 80666121 Comment: Unclear why the patient is so weak. ? secondary to diastolic CHF- will give lasix 20mg IV x 1 now and reassess tomorrow. PT eval indicates pt needs STR. I do not think the patient was severely infected on admission. ? if pt was not moving well at home due to gout and then became deconditioned. (4) Elevated troponin Current Visit: Yes Status: Acute Code(s): R74.8 - ABNORMAL LEVELS OF OTHER SERUM ENZYMES SNOMED Code(s): 163375278 Comment: Possibly secondary to demand ischemia. EKG unchanged for prior in 2014. No wall motion abnormalities. No further testing at this time. (5) HTN (hypertension) Current Visit: Yes Status: Acute Code(s): I10 - ESSENTIAL (PRIMARY) HYPERTENSION SNOMED Code(s): 51289548 Comment: BP generally under ok control. Resume Losartan/HCTZ. (6) HLD (hyperlipidemia) Current Visit: Yes Status: Acute Code(s): E78.5 - HYPERLIPIDEMIA, UNSPECIFIED SNOMED Code(s): 33127863 Comment: Not on treatment. (7) DVT prophylaxis Current Visit: Yes Status: Acute Code(s): Z29.9 - ENCOUNTER FOR PROPHYLACTIC MEASURES, UNSPECIFIED SNOMED Code(s): 116744818 Comment: SQ heparin (8) Full code status Current Visit: Yes Status: Acute Code(s): Z78.9 - OTHER SPECIFIED HEALTH STATUS SNOMED Code(s): 350477355 Comment: Full code
[2018-07-04 15:21] LABS: Hematocrit 37 % (42-52); Hemoglobin 12.6 g/dL (14.0-18.0); Mean Corpuscular HGB Conc 34 g/dL (31-36); Mean Corpuscular Hemoglobin 32 pg (27-31); Mean Corpuscular Volume 94 fL (80-94); Mean Platelet Volume 8.3 fL (7.4-10.4); Platelet Count 262 10^3/uL (150-450); Red Blood Count 3.97 10^6 /uL (4.18-5.48); Red Cell Distribution Width 13 % (10.5-15); White Blood Count 8.4 10^3/uL (3.5-10.8)
[2018-07-04 15:31] LABS: BUN/Creatinine Ratio 21.8 (8-20); C Reactive Protein 252.78 mg/L (<8.01); Calcium 8.9 mg/dL (8.6-10.3); EGFR Non-African American 63.6 (>60); Potassium 3.3 mmol/L (3.5-5.0)
[2018-07-04 17:58] LABS: Erythrocyte Sed Rate 120 mm/Hr (0-19)
[2018-07-05] MEDS: ceFAZolin 1 GM ADVAN(*) 1 GM in NS 0.9% 50 ML* 50 ML IVPB SCH ×4 (04:04→21:08)
[2018-07-05] MEDS: Heparin VIAL(*) 5000 UNITS/ML VIAL (FIVE THOUSAND) SUBCUT SCH ×3 (06:20→21:07)
[2018-07-05] MEDS: Hydrochlorothiazide TAB* 25 MG PO SCH (09:31)
[2018-07-05] MEDS: Aspirin EC TAB* 81 MG TAB.EC PO SCH (09:32)
[2018-07-05] MEDS: Multivitamins/Minerals TAB PO SCH (09:32)
[2018-07-05] MEDS: Losartan TAB* 25 MG PO SCH (09:32)
[2018-07-05] MEDS: Colchicine* 0.6 MG TAB PO SCH (09:33)
[2018-07-05] MEDS: Neomycin/Polym/Bacit TOP OINT* 15 GM TOPICAL SCH (09:33)
[2018-07-05] MEDS ORDERED: Vancomycin Trough Check NOTE FOLLOW UP ONE (11:30)
--- NOTE | 2018-07-05 15:18 | PN ---
Subjective Date of Service: 07/05/18 Interval History: Mr. Abdalla is feeling better today. He continues to have left foot pain, but it has improved significantly. He thinks the edema is worse than it previously was. Still feeling very weak and is agreeable to rehab. Denies CP, SOB, N/V. Appetite is somewhat poor and he is a picky eater so he has not been eating much here in the hospital. Family thinks his confusion has resolved and he is back to his baseline mental status. No concerns from nursing. Family History: Unchanged from Admission Social History: Unchanged from Admission Past Medical History: Unchanged from Admission Objective Active Medications: Acetaminophen (Tylenol Tab*) 650 mg PO Q6H PRN FEVER/PAIN Aspirin (Aspirin Ec Tab*) 81 mg PO QAM [facility] Colchicine (Colcrys*) 0.6 mg PO DAILY [facility] Heparin Sodium (Porcine) (Heparin Vial(*)) 5,000 units SUBCUT Q8HR [facility] Hydrochlorothiazide (Hydrodiuril Tab*) 12.5 mg PO QAM [facility] Cefazolin Sodium 1 gm/ Sodium (Chloride) 50 mls @ 200 mls/hr IVPB Q6H [facility] Losartan Potassium (Cozaar Tab*) 50 mg PO QAM [facility] Multivitamins/Minerals (Theragran/Minerals Tab*) 1 tab PO QAM [facility] Neomycin/Polymyxin/Bacitracin (Neosporin Top Oint Tube*) 1 applic TOPICAL DAILY [facility] Ondansetron HCl (Zofran Inj*) 4 mg IV Q6H PRN NAUSEA Vital Signs - 8 hr 07/05/18 07/05/18 07/05/18 07:39 08:51 11:30 Temperature 97.9 F 97.4 F Pulse Rate 77 73 Respiratory 16 20 20 Rate Blood Pressure 139/53 140/51 (mmHg) O2 Sat by Pulse 91 96 Oximetry Oxygen Devices in Use Now: None Appearance: Elderly male sitting in bed in NAD Eyes: No Scleral Icterus Ears/Nose/Mouth/Throat: Mucous Membranes Moist Neck: NL Appearance and Movements; NL JVP, Trachea Midline Respiratory: Symmetrical Chest Expansion and Respiratory Effort, Clear to Auscultation Cardiovascular: NL Sounds; No Murmurs; No JVD, RRR Abdominal: NL Sounds; No Tenderness; No Distention Extremities: - - +2 pitting left foot Skin: - - Small abrasion with surrounding erythema to medial left foot Neurological: Alert and Oriented x 3 Lines/Tubes/Other Access: Clean, Dry and Intact Peripheral IV Nutrition: Taking PO's Result Diagrams: 07/04/18 15:03 07/04/18 15:03 Assess/Plan/Problems-Billing Assessment: Mr. Abdalla is an 87 yo M with PMH of HTN, HLD, CKD stage III and mild cognitive impairment; who presented to the ER with c/o weakness and was admitted for L foot/1st and 2nd toe cellulitis. - Patient Problems (1) Cellulitis Code(s): L03.90 - CELLULITIS, UNSPECIFIED Comment: - Mild cellulitis to L dorsum of the foot and 1st/2nd toes; minimal pain at rest and on palpation - CRP still trending up - Left foot xray shows OA without evidence of osteomyelitis or fracture; MRI was ordered wrong and done of the left knee though at this point there is a very low suspicion for osteomyelitis - Possibility that there is a component of gout, though this is less likely - Continue cefazolin, colchicine (2) Weakness Code(s): R53.1 - WEAKNESS Comment: - Unclear etiology; possibly secondary to diastolic CHF and received furosemide x1 yesterday - PT eval indicates pt needs STR (3) Sepsis Comment: - Resolved - Met criteria on admission with tachycardia and tachypnea - Treated for sepsis with fluid bolus and broad spectrum abx (4) Elevated troponin Code(s): R74.8 - ABNORMAL LEVELS OF OTHER SERUM ENZYMES Comment: - Possibly secondary to demand ischemia - EKG unchanged for prior in 2014; no wall motion abnormalities - No further testing at this time (5) HTN (hypertension) Code(s): I10 - ESSENTIAL (PRIMARY) HYPERTENSION Comment: - Slightly hypertensive, SBP 130-150s - Continue HCTZ, losartan (6) CKD (chronic kidney disease), stage III Code(s): N18.3 - CHRONIC KIDNEY DISEASE, STAGE 3 (MODERATE) Comment: - Creatinine at baseline (7) HLD (hyperlipidemia) Code(s): E78.5 - HYPERLIPIDEMIA, UNSPECIFIED Comment: - Lipid panel shows good control - Not on outpatient treatment (8) DVT prophylaxis Code(s): Z29.9 - ENCOUNTER FOR PROPHYLACTIC MEASURES, UNSPECIFIED Comment: - Heparin SQ (9) Full code status Code(s): Z78.9 - OTHER SPECIFIED HEALTH STATUS Comment: Status and Disposition: Inpatient. Anticipate d/c to [facility] when medically stable, likely tomorrow. Attending: Danay Antoine
[2018-07-06] MEDS: ceFAZolin 1 GM ADVAN(*) 1 GM in NS 0.9% 50 ML* 50 ML IVPB SCH ×4 (05:36→22:23)
[2018-07-06] MEDS: Heparin VIAL(*) 5000 UNITS/ML VIAL (FIVE THOUSAND) SUBCUT SCH ×3 (05:39→22:23)
[2018-07-06] MEDS: Neomycin/Polym/Bacit TOP OINT* 15 GM TOPICAL SCH (09:59)
[2018-07-06] MEDS: Hydrochlorothiazide TAB* 25 MG PO SCH (10:00)
[2018-07-06] MEDS: Losartan TAB* 25 MG PO SCH (10:00)
[2018-07-06] MEDS: Colchicine* 0.6 MG TAB PO SCH (10:00)
[2018-07-06] MEDS: Aspirin EC TAB* 81 MG TAB.EC PO SCH (10:01)
[2018-07-06] MEDS: Multivitamins/Minerals TAB PO SCH (10:01)
--- NOTE | 2018-07-06 12:51 | PN ---
Subjective Date of Service: 07/06/18 Interval History: Mr. Abdalla is feeling better this morning. He is not feeling quite so weak. He is up in the chair eating breakfast on my exam. He denies any pain in his left foot. Offers no complaints. Denies CP, SOB, N/V. Good appetite. No concerns from nursing. Family History: Unchanged from Admission Social History: Unchanged from Admission Past Medical History: Unchanged from Admission Objective Active Medications: Acetaminophen (Tylenol Tab*) 650 mg PO Q6H PRN FEVER/PAIN Aspirin (Aspirin Ec Tab*) 81 mg PO QAM [facility] Colchicine (Colcrys*) 0.6 mg PO DAILY [facility] Heparin Sodium (Porcine) (Heparin Vial(*)) 5,000 units SUBCUT Q8HR [facility] Hydrochlorothiazide (Hydrodiuril Tab*) 12.5 mg PO QAM [facility] Cefazolin Sodium 1 gm/ Sodium (Chloride) 50 mls @ 200 mls/hr IVPB Q6H [facility] Losartan Potassium (Cozaar Tab*) 50 mg PO QAM [facility] Multivitamins/Minerals (Theragran/Minerals Tab*) 1 tab PO QAM [facility] Neomycin/Polymyxin/Bacitracin (Neosporin Top Oint Tube*) 1 applic TOPICAL DAILY [facility] Ondansetron HCl (Zofran Inj*) 4 mg IV Q6H PRN NAUSEA Vital Signs - 8 hr 07/06/18 07/06/18 07:59 12:20 Temperature 98.3 F 98.6 F Pulse Rate 85 75 Respiratory 20 22 Rate Blood Pressure 144/65 145/61 (mmHg) O2 Sat by Pulse 96 95 Oximetry Oxygen Devices in Use Now: None Appearance: Elderly male sitting in chair in NAD Eyes: No Scleral Icterus Ears/Nose/Mouth/Throat: Mucous Membranes Moist Neck: NL Appearance and Movements; NL JVP, Trachea Midline Respiratory: Symmetrical Chest Expansion and Respiratory Effort, Clear to Auscultation Cardiovascular: NL Sounds; No Murmurs; No JVD, RRR Abdominal: NL Sounds; No Tenderness; No Distention Extremities: - - +1 left foot Skin: - - Small abrasion to left medial foot with small amount of surrounding redness Neurological: Alert and Oriented x 3 Lines/Tubes/Other Access: Clean, Dry and Intact Peripheral IV Nutrition: Taking PO's Result Diagrams: 07/04/18 15:03 07/04/18 15:03 Assess/Plan/Problems-Billing Assessment: Mr. Abdalla is an 87 yo M with PMH of HTN, HLD, CKD stage III and mild cognitive impairment; who presented to the ER with c/o weakness and was admitted for L foot/1st and 2nd toe cellulitis. - Patient Problems (1) Cellulitis Code(s): L03.90 - CELLULITIS, UNSPECIFIED Comment: - Mild cellulitis to L dorsum of the foot and 1st/2nd toes; minimal pain at rest and on palpation - CRP still trending up - Left foot xray shows OA without evidence of osteomyelitis or fracture; MRI was ordered wrong and done of the left knee though at this point there is a very low suspicion for osteomyelitis - Possibility that there is a component of gout, though this is less likely - Continue cefazolin, colchicine (2) Weakness Code(s): R53.1 - WEAKNESS Comment: - Unclear etiology; possibly secondary to diastolic CHF and received furosemide x1 yesterday - PT eval indicates pt needs STR (3) Sepsis Comment: - Resolved - Met criteria on admission with tachycardia and tachypnea - Treated for sepsis with fluid bolus and broad spectrum abx (4) Elevated troponin Code(s): R74.8 - ABNORMAL LEVELS OF OTHER SERUM ENZYMES Comment: - Possibly secondary to demand ischemia - EKG unchanged for prior in 2014; no wall motion abnormalities - No further testing at this time (5) HTN (hypertension) Code(s): I10 - ESSENTIAL (PRIMARY) HYPERTENSION Comment: - Slightly hypertensive, SBP 120-140s - Continue HCTZ, losartan (6) CKD (chronic kidney disease), stage III Code(s): N18.3 - CHRONIC KIDNEY DISEASE, STAGE 3 (MODERATE) Comment: - Creatinine at baseline (7) HLD (hyperlipidemia) Code(s): E78.5 - HYPERLIPIDEMIA, UNSPECIFIED Comment: - Lipid panel shows good control - Not on outpatient treatment (8) DVT prophylaxis Code(s): Z29.9 - ENCOUNTER FOR PROPHYLACTIC MEASURES, UNSPECIFIED Comment: - Heparin SQ (9) Full code status Code(s): Z78.9 - OTHER SPECIFIED HEALTH STATUS Comment: Status and Disposition: Inpatient. Anticipate d/c to [facility] when medically stable, probably Monday. Attending: Luis Miguel Roberson
[2018-07-07] MEDS: Melatonin 3 MG TAB PO SCH ×2 (02:34→22:14)
[2018-07-07] MEDS: Acetaminophen TAB* 325 MG PO PRN (02:34)
[2018-07-07] MEDS: ceFAZolin 1 GM ADVAN(*) 1 GM in NS 0.9% 50 ML* 50 ML IVPB SCH ×4 (04:12→22:14)
[2018-07-07] MEDS: Heparin VIAL(*) 5000 UNITS/ML VIAL (FIVE THOUSAND) SUBCUT SCH ×3 (06:12→22:14)
[2018-07-07] MEDS: Hydrochlorothiazide TAB* 25 MG PO SCH (09:09)
[2018-07-07] MEDS: Losartan TAB* 25 MG PO SCH (09:09)
[2018-07-07] MEDS: Colchicine* 0.6 MG TAB PO SCH (09:09)
[2018-07-07] MEDS: Aspirin EC TAB* 81 MG TAB.EC PO SCH (09:09)
[2018-07-07] MEDS: Multivitamins/Minerals TAB PO SCH (09:09)
[2018-07-07] MEDS: Neomycin/Polym/Bacit TOP OINT* 15 GM TOPICAL SCH (09:12)
[2018-07-07] MEDS: Benzonatate CAP* 100 MG PO PRN ×2 (10:17→22:22)
[2018-07-07] MEDS: Albuterol/Ipratropium NEB.SOL* Albuterol 2.5 MG/Ipratropium 0.5 MG 3 ML INH PRN (10:30)
--- NOTE | 2018-07-07 17:16 | PN ---
Subjective Date of Service: 07/07/18 Interval History: Mr. Mittal is a pleasant 87 yo male who was laying in bed resting watching TV. He reports he feels "terrible" when asked what was bothering him he said "it is really spiritually". He feels discouraged being in the hospital. He has some mild cognitive impairment at his baseline but appears to answers most questions appropriately, he knows where he is but couldn't remember why he was in the hospital. He denies any pain. Reports poor appetite Family History: Unchanged from Admission Social History: Unchanged from Admission Past Medical History: Unchanged from Admission Objective Active Medications: Acetaminophen (Tylenol Tab*) 650 mg PO Q6H PRN PRN Reason: FEVER/PAIN Last Admin: 07/07/18 02:34 Dose: 650 mg Albuterol/Ipratropium (Duoneb (Albuterol 2.5 Mg/Ipratropium 0.5 Mg)) 1 neb INH Q4H PRN PRN Reason: SOB/WHEEZING Last Admin: 07/07/18 10:30 Dose: 1 neb Aspirin (A[facility]in Ec Tab*) [facility] Last Admin: 07/07/18 09:09 Dose: 81 mg Benzonatate (Tessalon Cap*) 100 mg PO BID PRN PRN Reason: COUGH Last Admin: 07/07/18 10:17 Dose: 100 mg Colchicine (Colcrys*) 0.6 mg PO DAILY [facility] Last Admin: 07/07/18 09:09 Dose: 0.6 mg Heparin Sodium (Porcine) (Heparin Vial(*)) 5,000 units SUBCUT Q8HR [facility] Last Admin: 07/07/18 13:51 Dose: 5,000 units Hydrochlorothiazide (Hydrodiuril Tab*) [facility] [place] Last Admin: 07/07/18 09:09 Dose: 12.5 mg Cefazolin Sodium 1 gm/ Sodium (Chloride) 50 mls @ 200 mls/hr IVPB Q6H [facility] Last Admin: 07/07/18 15:38 Dose: 200 mls/hr Losartan Potassium (Cozaar Tab*) [facility] [place] Last Admin: 07/07/18 09:09 Dose: 50 mg Melatonin (Melatonin) 3 mg PO BEDTIME [facility] Last Admin: 07/07/18 02:34 Dose: 3 mg Multivitamins/Minerals (Theragran/Minerals Tab*) 1 tab PO QAM [facility] Last Admin: 07/07/18 09:09 Dose: 1 tab Neomycin/Polymyxin/Bacitracin (Neosporin Top Oint Tube*) 1 applic TOPICAL DAILY [facility] Last Admin: 07/07/18 09:12 Dose: 1 applic Ondansetron HCl (Zofran Inj*) 4 mg IV Q6H PRN PRN Reason: NAUSEA Vital Signs - 8 hr 07/07/18 07/07/18 07/07/18 09:33 10:31 10:57 Temperature 97.6 F Pulse Rate 62 73 Respiratory 18 18 24 Rate Blood Pressure 133/48 (mmHg) O2 Sat by Pulse 95 92 100 Oximetry Oxygen Devices in Use Now: None Result Diagrams: 07/04/18 15:03 07/04/18 15:03 Microbiology and Other Data: Microbiology 07/02/18 17:58 Urine Culture - Final Urine Assess/Plan/Problems-Billing Assessment: Mr. Mittal is an 87 yo M with PMH of HTN, HLD, CKD stage III and mild cognitive impairment; who presented to the ER with c/o weakness and was admitted for L foot/1st and 2nd toe cellulitis. - Patient Problems (1) Sepsis Comment: - Resolved - Met criteria on admission with tachycardia and tachypnea - Treated for sepsis with fluid bolus and broad spectrum abx - Source cellulitis (2) Cellulitis Comment: - Mild cellulitis to L dorsum of the foot and 1st/2nd toes; minimal pain at rest and on palpation - CRP >200 - repeat in am - Left foot xray shows OA without evidence of osteomyelitis or fracture; MRI was ordered wrong and done of the left knee though at this point there is a very low suspicion for osteomyelitis - Possibility that there is a component of gout, though this is less likely - Continue cefazolin, colchicine (3) Weakness Comment: - Unclear etiology; possibly secondary to diastolic CHF and received furosemide x1 07/04 - appear euvolemic - PT eval indicates pt needs STR (4) Elevated troponin Comment: - Possibly secondary to demand ischemia - EKG unchanged for prior in 2014; no wall motion abnormalities - No further testing at this time (5) HTN (hypertension) Comment: - Slightly hypertensive, SBP 120-140s - Continue HCTZ, losartan (6) CKD (chronic kidney disease), stage III Comment: - Creatinine at baseline (7) HLD (hyperlipidemia) Comment: - Lipid panel shows good control - Not on outpatient treatment (8) DVT prophylaxis Comment: - Heparin SQ (9) Full code status Comment: Status and Disposition: Inpatient. Anticipate d/c to [facility] when medically stable, probably Monday.
[2018-07-07] MEDS: Ascorbic Acid TAB* 500 MG PO SCH (22:14)
[2018-07-08] MEDS: ceFAZolin 1 GM ADVAN(*) 1 GM in NS 0.9% 50 ML* 50 ML IVPB SCH ×4 (04:20→21:36)
[2018-07-08] MEDS: Heparin VIAL(*) 5000 UNITS/ML VIAL (FIVE THOUSAND) SUBCUT SCH ×3 (05:18→21:36)
[2018-07-08] MEDS: Albuterol/Ipratropium NEB.SOL* Albuterol 2.5 MG/Ipratropium 0.5 MG 3 ML INH PRN (05:35)
[2018-07-08 06:36] LABS: Hematocrit 39 % (42-52); Hemoglobin 13.1 g/dL (14.0-18.0); Mean Corpuscular HGB Conc 34 g/dL (31-36); Mean Corpuscular Hemoglobin 32 pg (27-31); Mean Corpuscular Volume 94 fL (80-94); Platelet Count 387 10^3/uL (150-450); Red Blood Count 4.12 10^6 /uL (4.18-5.48); Red Cell Distribution Width 13 % (10.5-15); White Blood Count 8.3 10^3/uL (3.5-10.8)
[2018-07-08 06:53] LABS: BUN/Creatinine Ratio 19.6 (8-20); C Reactive Protein 114.07 mg/L (<8.01); Calcium 9.3 mg/dL (8.6-10.3); EGFR African American 79.5 (>60); EGFR Non-African American 65.7 (>60); Potassium 4.2 mmol/L (3.5-5.0)
[2018-07-08 07:23] LABS: ABS Eosinophils 0.7 10^3/ul (0-0.6); ABS Lymphocytes 1.1 10^3/ul (1.0-4.8); ABS Monocytes 0.8 10^3/ul (0-0.8); ABS Neutrophils 5.8 10^3/ul (1.5-7.7); Eosinophil % 7.9 %; Lymphocyte % 12.7 %; Nucleated Red Blood Cells % 0.1
[2018-07-08 07:49] LABS: Erythrocyte Sed Rate 85 mm/Hr (0-19)
[2018-07-08] MEDS: Hydrochlorothiazide TAB* 25 MG PO SCH (09:20)
[2018-07-08] MEDS: Neomycin/Polym/Bacit TOP OINT* 15 GM TOPICAL SCH (09:20)
[2018-07-08] MEDS: Colchicine* 0.6 MG TAB PO SCH (09:20)
[2018-07-08] MEDS: Aspirin EC TAB* 81 MG TAB.EC PO SCH (09:20)
[2018-07-08] MEDS: Ascorbic Acid TAB* 500 MG PO SCH ×2 (09:20→19:55)
[2018-07-08] MEDS: Multivitamins/Minerals TAB PO SCH (09:20)
[2018-07-08] MEDS: Losartan TAB* 25 MG PO SCH (09:20)
--- NOTE | 2018-07-08 15:49 | PN ---
Subjective Date of Service: 07/08/18 Interval History: 87 yo male laying in bed resting. He reports he feels down being in the hospital - reports he knows he needs rehab for his gait abnormality. His toe feels better - reports it does hurt when he touches it but the sheet does not bother it which is an improvement Denies any fever or chills Family History: Unchanged from Admission Social History: Unchanged from Admission Past Medical History: Unchanged from Admission Objective Active Medications: Acetaminophen (Tylenol Tab*) 650 mg PO Q6H PRN PRN Reason: FEVER/PAIN Last Admin: 07/07/18 02:34 Dose: 650 mg Albuterol/Ipratropium (Duoneb (Albuterol 2.5 Mg/Ipratropium 0.5 Mg)) 1 neb INH Q4H PRN PRN Reason: SOB/WHEEZING Last Admin: 07/08/18 05:35 Dose: 1 neb Ascorbic Acid (Vitamin C Tab*) 500 mg PO BID [facility] Last Admin: 07/08/18 09:20 Dose: 500 mg Aspirin (Aspirin Ec Tab*) [facility] [place] Last Admin: 07/08/18 09:20 Dose: 81 mg Benzonatate (Tessalon Cap*) 100 mg PO BID PRN PRN Reason: COUGH Last Admin: 07/07/18 22:22 Dose: 100 mg Colchicine (Colcrys*) 0.6 mg PO DAILY [facility] Last Admin: 07/08/18 09:20 Dose: 0.6 mg Heparin Sodium (Porcine) (Heparin Vial(*)) 5,000 units SUBCUT Q8HR [facility] Last Admin: 07/08/18 13:35 Dose: 5,000 units Hydrochlorothiazide (Hydrodiuril Tab*) 12.[facility] [place] Last Admin: 07/08/18 09:20 Dose: 12.5 mg Cefazolin Sodium 1 gm/ Sodium (Chloride) 50 mls @ 200 mls/hr IVPB Q6H [facility] Last Admin: 07/08/18 09:20 Dose: 200 mls/hr Losartan Potassium (Cozaar Tab*) [facility] [place] Last Admin: 07/08/18 09:20 Dose: 50 mg Melatonin (Melatonin) 3 mg PO BEDTIME [facility] Last Admin: 07/07/18 22:14 Dose: 3 mg Multivitamins/Minerals (Theragran/Minerals Tab*) 1 tab PO QAM [facility] Last Admin: 07/08/18 09:20 Dose: 1 tab Neomycin/Polymyxin/Bacitracin (Neosporin Top Oint Tube*) 1 applic TOPICAL DAILY [facility] Last Admin: 07/08/18 09:20 Dose: 1 applic Ondansetron HCl (Zofran Inj*) 4 mg IV Q6H PRN PRN Reason: NAUSEA Vital Signs - 8 hr 07/08/18 07/08/18 07/08/18 08:00 10:47 11:51 Temperature 98.3 F Pulse Rate 73 Respiratory 22 28 Rate Blood Pressure 135/49 (mmHg) O2 Sat by Pulse 92 92 93 Oximetry 07/08/18 15:24 Temperature 98.1 F Pulse Rate 77 Respiratory 20 Rate Blood Pressure 131/50 (mmHg) O2 Sat by Pulse 94 Oximetry Oxygen Devices in Use Now: None Appearance: elderly male laying in bed resting in NAD, A+Ox3; pleasent - answers questions apprpriately Eyes: No Scleral Icterus, PERRLA Ears/Nose/Mouth/Throat: Mucous Membranes Moist Respiratory: Symmetrical Chest Expansion and Respiratory Effort, Clear to Auscultation Cardiovascular: NL Sounds; No Murmurs; No JVD, RRR, No Edema Abdominal: NL Sounds; No Tenderness; No Distention Extremities: - - left 1rst big toe has erythema, mild edema that travels over the top of his foot; 1+ pedal pulse Neurological: Alert and Oriented x 3, NL Sensation, NL Muscle Strength and Tone Lines/Tubes/Other Access: Clean, Dry and Intact Peripheral IV Nutrition: Taking PO's Result Diagrams: 07/08/18 06:08 07/08/18 06:08 Microbiology and Other Data: Microbiology 07/02/18 17:58 Urine Culture - Final Urine Assess/Plan/Problems-Billing Assessment: Mr. Abdalla is an 87 yo M with PMH of HTN, HLD, CKD stage III and mild cognitive impairment; who presented to the ER with c/o weakness and was admitted for L foot/1st and 2nd toe cellulitis. - Patient Problems (1) Sepsis Comment: - Resolved - Met criteria on admission with tachycardia and tachypnea - Treated for sepsis with fluid bolus and broad spectrum abx - Source cellulitis - Blood cx NTD (2) Cellulitis Comment: - Mild cellulitis to L dorsum of the foot and 1st/2nd toes; pain improving - CRP/ESR trending down - Left foot xray shows OA without evidence of osteomyelitis or fracture; MRI was ordered wrong and done of the left knee though at this point there is a very low suspicion for osteomyelitis - Possibility that there is a component of gout, though this is less likely - Continue cefazolin, colchicine (3) Weakness Comment: - Unclear etiology; possibly secondary to diastolic CHF and received furosemide x1 07/04 - pt appears euvolemic - PT eval indicates pt needs STR (4) Elevated troponin Comment: - Possibly secondary to demand ischemia - EKG unchanged for prior in 2014; no wall motion abnormalities - No further testing at this time (5) HTN (hypertension) Comment: - Slightly hypertensive, SBP 120-140s - Continue HCTZ, losartan (6) CKD (chronic kidney disease), stage III Comment: - Creatinine at baseline (7) HLD (hyperlipidemia) Comment: - Lipid panel shows good control - Not on outpatient treatment (8) DVT prophylaxis Comment: - Heparin SQ (9) Full code status Comment: Status and Disposition: Inpatient. Anticipate d/c to [facility] when medically stable, awaiting bed
[2018-07-08] MEDS: Melatonin 3 MG TAB PO SCH (19:55)
[2018-07-08] MEDS: Benzonatate CAP* 100 MG PO PRN (22:37)
[2018-07-09] MEDS: ceFAZolin 1 GM ADVAN(*) 1 GM in NS 0.9% 50 ML* 50 ML IVPB SCH ×3 (04:48→16:27)
[2018-07-09] MEDS: Heparin VIAL(*) 5000 UNITS/ML VIAL (FIVE THOUSAND) SUBCUT SCH ×2 (05:30→14:38)
[2018-07-09] MEDS: Aspirin EC TAB* 81 MG TAB.EC PO SCH (10:48)
[2018-07-09] MEDS: Multivitamins/Minerals TAB PO SCH (10:48)
[2018-07-09] MEDS: Ascorbic Acid TAB* 500 MG PO SCH (10:48)
[2018-07-09] MEDS: Neomycin/Polym/Bacit TOP OINT* 15 GM TOPICAL SCH (10:48)
[2018-07-09] MEDS: Losartan TAB* 25 MG PO SCH (10:48)
[2018-07-09] MEDS: Colchicine* 0.6 MG TAB PO SCH (10:49)
[2018-07-09] MEDS: Hydrochlorothiazide TAB* 25 MG PO SCH (10:49)
--- NOTE | 2018-07-09 16:16 | DS ---
CC: Dr. Ángel Almazan * DISCHARGE SUMMARY: DATE OF ADMISSION: 07/02/18 DATE OF DISCHARGE: 07/09/18 PRIMARY CARE PROVIDER: Dr. Ángel Almazan. ATTENDING PHYSICIAN: Louis Cheney MD * (dictated by JUAN Blackwood). PRIMARY DIAGNOSIS: Cellulitis, possibly complicated by gout. SECONDARY DIAGNOSES: 1. Hypertension. 2. Hyperlipidemia. 3. Chronic kidney disease, stage III. 4. Mild cognitive impairment. 5. Transient ischemic attack, no residual deficits. 6. Recent skin cancer, s/p removal. 7. History of hepatitis, 1956, hospitalized x1 month. STUDIES WHILE IN THE HOSPITAL: Chest x-ray, 07/02/18, impression: No evidence for active cardiopulmonary disease. Venous Doppler study bilateral lower extremities 07/02/18, impression: No acute findings. No evidence of deep vein thrombosis. Transthoracic echocardiogram, 07/03/18, summary: Left ventricle: There is focal basal hypertrophy. Systolic function is normal. The estimated ejection fraction is 55% to 65% by visual assessment. Wall motion is normal. There are no regional wall motion abnormalities. Right ventricle: Systolic function is low normal. Mitral valve: There is no evidence of stenosis. There is mild regurgitation. Aortic valve: There is no evidence of stenosis. There is mild regurgitation. Tricuspid valve: There is mild regurgitation. Pericardium, extra pericardium: There is no significant pericardial effusion. Impression: Unchanged from the study of 07/13/14. Foot x-ray 07/04/18, impression: Osteoarthritis, soft tissue swelling of the forefoot, no appreciable erosion or periosteal reaction. Chest x-ray, 07/06/18, impression: No evidence of acute disease. DISCHARGE MEDICATIONS: Home Medications: 1. Vitamin A/vitamin C/ vitamin E/zinc/copper one tab p.o. q.a.m. 2. Losartan/hydrochlorothiazide 50/12.5 one tab p.o. q.a.m. 3. Lipozene one tab p.o. q.a.m. 4. Aspirin 81 mg p.o. q.a.m. [place] Medications: 1. Cephalexin 500 mg p.o. 4 times a day x7 days, starting at 2100. 2. Colicine 0.6 mg p.o. daily. HISTORY OF PRESENT ILLNESS/HOSPITAL COURSE: Mr. Abdalla is an 87-year-old man with a past medical history significant for hypertension, hyperlipidemia, and TIA in 2015, who presents to the ER due to lack of strength in upper and lower extremities, feeling "off," no appetite x2 days. He reports subjective fevers without chills. He states that he fell several days ago and hit both his toes and complains of pain since then. He notes to have had swollen feet since the day of arrival and notes that he has not had this in the past. In the ER, he received a full workup. He was noted to have borderline tachycardia, fever, leukocytosis, elevated CPR, elevated troponins. EKG showed no ischemia. Doppler of the lower extremities was negative. Chest x-ray was negative. Urinalysis negative. He was admitted for left lower extremity cellulitis and sepsis. He was started on vancomycin, cefepime, Flagyl with the plan for narrowing in the near future. While in the hospital, the patient's sepsis resolved with fluid bolus and broad - spectrum antibiotics. The patient continued to have mild cellulitis to the left dorsum of the foot that involved the first and second great toes. He had pain with the movement of the first great toe, which was concerning for possible gout. He was started on colchicine. Uric acid levels were within normal limits, but colchicine appeared to help, along with antibiotic treatment , so this was continued. Coverage was narrowed to cefazolin. At the time of discharge, the patient had a slight erythema to the first metacarpophalangeal joint. He was able to move the toe which was still somewhat painful. The patient also was admitted due to complaints of weakness. This was thought to be secondary to infection initially. He also had bilateral lower extremity edema, mildly positive troponin. TTE was ordered. TTE showed no wall motion abnormalities. EKG was unchanged from EKG in 2015. It is likely that elevated troponin was due to demand ischemia. The patient remained weak throughout his hospital stay. It is suspected that this is due to a mixture of possible diastolic heart failure, infection, difficulty moving at home due to gout, which may have led to deconditioning. PT evaluation indicates that the patient needs subacute rehab. A wound consult was ordered as the patient had a 0.6 cm x 0.4 cm small scabbed area at the medial aspect of the base of the first toe. Wound clinician suggested antibiotic ointment, Band-Aid to the wound. At the time of discharge , the patient denies chest pain, shortness of breath, fever, chills, cough, abdominal pain, nausea, vomiting, diarrhea, or constipation. He continues to feel weak and is looking forward to subacute rehabilitation in hopes that it will improve this. He does continue to complain of small amount of pain to the left great toe area. Mr. Abdalla is stable for discharge. PHYSICAL EXAMINATION: Vital Signs: Temperature 97.7 oral, heart rate 83, respiratory rate 16, oxygen saturation 99% on room air, blood pressure 142/92. General: Mr. Abdalla is a well-developed, well-nourished, overweight older male , who is lying in bed. He appears somewhat frail. He is in no acute distress. HEENT: Visual cook are grossly intact. Pupils are equally round and reactive to light. Extraocular movements are intact. Sclerae without icterus. Hearing is grossly intact. Oral mucous membranes are moist. There are no lesions. The pharynx is clear. Cardiovascular: Regular rate and rhythm with S1 , S2 present. There are no murmurs, rubs or gallops. There is no JVD. Respiratory: Symmetrical chest expansion. No use of accessory muscles. Lungs are clear to auscultation. There are no rhonchi, wheezes, or rubs. Abdomen: Obese. Bowel sounds noted in all quadrants. The abdomen is soft and nontender to palpation. There is no hepatosplenomegaly. Extremities: Skin is warm and smooth bilaterally. There is no clubbing or cyanosis. There is trace edema to the left lower extremity. Radial and pedal pulses are palpable. There is a small crusted-over wound medial to the left great toe. There is a small patch of erythema at the dorsal area of the metatarsophalangeal joint. The patient is able to flex and extend. Sensation is intact. Neuro: The patient is awake. He is alert and he is oriented x3. He is able to move all of his extremities. DISCHARGE PLAN: Mr. Abdalla will be discharged to [facility]. ACTIVITY: As tolerated. CONDITION: Stable. DIET: Heart healthy. MEDICATIONS: 1. Continue colchicine as needed for great toe pain. 2. Continue cephalexin 500 mg 4 times a day x7 days, next dose 2100. EDUCATION: 1. Follow up with provider at [facility] in 4 to 7 days. 2. Return to the ER or nearest hospital if he experienced any worsening of symptoms, shortness of breath, chest pain, high fevers, chills, night sweats, lightheadedness, dizziness, loss of consciousness, or any other worrisome signs or symptoms. This is a summarized report of a complex medical history and hospital stay. For further details, please see the entire medical record. TIME SPENT: Approximately 35 minutes was spent on this discharge; greater than half of that time spent [id number] with the patient discussing discharge plans and instructions. JUAN ALFORD [id number]/[facility] #: [id number] MTDNena
[2018-07-09 16:46] VITALS: BP 129/49
== END 2018-07-09 17:15 | DRG 872 ==
LOC: ED 17:36 → MED 21:44
PROVIDERS: ADMIT Pediatrics; ATTEND Student in an Organized Health Care Education/Training Program
DX: A41.9 Sepsis, unspecified organism (principal); L03.116 Cellulitis of left lower limb; I24.8 Other forms of acute ischemic heart disease; I50.30 Unspecified diastolic (congestive) heart failure; I13.0 Hypertensive heart and chronic kidney disease with heart failure and stage 1 through stage 4 chronic kidney disease, or unspecified chronic kidney disease; E78.5 Hyperlipidemia, unspecified; G31.84 Mild cognitive impairment of uncertain or unknown etiology; N18.3 Chronic kidney disease, stage 3 (moderate); L97.529 Non-pressure chronic ulcer of other part of left foot with unspecified severity; M10.9 Gout, unspecified; M19.072 Primary osteoarthritis, left ankle and foot; R53.1 Weakness; R74.8 Abnormal levels of other serum enzymes; Z85.828 Personal history of other malignant neoplasm of skin; Z86.19 Personal history of other infectious and parasitic diseases; Z86.73 Personal history of transient ischemic attack (TIA), and cerebral infarction without residual deficits; Z79.82 Long term (current) use of aspirin; Z79.899 Other long term (current) drug therapy; Z87.891 Personal history of nicotine dependence
CPT/HCPCS: 36415; 71045; 71046; 80048; 80053; 80061; 81003; 81015; 82306; 82550; 82607; 83036; 83605; 83735; 83880; 84484; 84550; 85025; 85027; 85610; 85652; 85730; 86140; 87040; 87086; 90732; 93005; 93306; 93970; 94640; 99284; A9270-GY; G8978-GP-CK; G8979-GP-CH; G8987-GO-CL; G8988-GO-CI; J0690; J0692; J1644; J1940; J2543; J3370; J3490